=== PATIENT | female | born 1995 | race Caucasian/White ===

== ENCOUNTER 2017-11-10 19:57 | Outpatient (CLI) | payer BC | END 2017-11-10 20:44 | disposition home or self-care (01) | LOC: LDOP 19:57 | PROVIDERS: ATTEND Obstetrics & Gynecology | DX: O26.892 Other specified pregnancy related conditions, second trimester (principal); M54.9 Dorsalgia, unspecified | CPT/HCPCS: 59025; 80307; 81003; 82962; 87086; 99201; G0463 ==

== ENCOUNTER 2017-12-02 11:50 | Observation (INO) | payer BC ==
[2017-11-10 20:25] LABS: MICROSCOPIC NOT IND
[2017-11-10 21:07] LABS: AMPHETAMINE SCREEN, URINE Negative (Negative); BARBITURATE SCREEN, URINE Negative (Negative); BENZODIAZEPINE SCREEN, URINE Negative (Negative); CANNABINOID SCREEN, URINE Negative (Negative); COCAINE SCREEN, URINE Negative (Negative); METHADONE SCREEN, URINE Negative (Negative); OPIATE SCREEN, URINE Negative (Negative)
[~2017-12-02] VITALS: Ht 165.1 cm; Wt 113.6 kg
[2017-12-02 15:37] LABS: MICROSCOPIC AUTO
[2017-12-02 15:56] LABS: AMPHETAMINE SCREEN, URINE Negative (Negative); BARBITURATE SCREEN, URINE Negative (Negative); BENZODIAZEPINE SCREEN, URINE Negative (Negative); CANNABINOID SCREEN, URINE Negative (Negative); COCAINE SCREEN, URINE Negative (Negative); METHADONE SCREEN, URINE Negative (Negative); OPIATE SCREEN, URINE Negative (Negative)
[2017-12-02 18:47] LABS: MEAN CORPUSCULAR HEMOGLOBIN 29.9 pg (27.0-34.8); MEAN CORPUSCULAR HGB CONC 34.2 g/dL (32.4-35.8); MEAN CORPUSCULAR VOLUME 87.5 fL (80-100); MEAN PLATELET VOLUME 7.9 fL (7.4-10.4); PLATELET COUNT 203 x10^3/uL (130-400); RED BLOOD COUNT 4.12 x10^6/uL (3.82-5.3); RED CELL DISTRIBUTION WIDTH 13.3 % (9.6-15.2)
== END 2017-12-02 18:48 | disposition home or self-care (01) ==
LOC: LDOP 11:50 → LDIP 12:43
PROVIDERS: ADMIT Obstetrics & Gynecology; ATTEND Obstetrics & Gynecology
DX: O26.892 Other specified pregnancy related conditions, second trimester (principal); M54.9 Dorsalgia, unspecified; N23 Unspecified renal colic; Z3A.22 22 weeks gestation of pregnancy
CPT/HCPCS: 36415; 59025; 76805; 80307; 81001; 85027; 86592; 86762; 86850; 86900; 87086; 87340; 87806; G0378; 81003; 99211; G0463; G0475